=== PATIENT | male | born 2000 | race Caucasian/White ===

== ENCOUNTER 2024-01-29 17:46 | Emergency (ER) | payer SELFPAY ==
[~2024-01-29] VITALS: Ht 177.8 cm; Wt 172.0 kg
[~2024-01-29 17:46] MED LIST: AMOXICILLIN500 MG OR; AMOXICILLIN500 MG PO; CEPHALEXIN500 MG PO; CORTISPORIN OTI10 ML AU; METRONIDAZOL500 MG PO; MIRALAX3350 NF PO; NAPROSYN375 MG PO; PERCOCET 5/325M1 TAB OR; PRILOSEC20 MG PO; TOBRAMYCIN0.3 % OP; TYLENOL # 31 TAB OR; ULTRAM50 M1 PO
[2024-01-29 17:55] VITALS: BP 157/100
[2024-01-29 18:01] VITALS: BP 150/94
[2024-01-29] MEDS ORDERED: methylPREDNISolone SODIUM SUCC 125 MG/2 ML SDV IM ONE (18:10)
[2024-01-29] MEDS ORDERED: AMOXICILLIN & POT CLAVULANATE 875 MG/TAB PO ONE (18:10)
[2024-01-29] MEDS ORDERED: KETOROLAC TROMETHAMINE 30 MG/ML SDV IM ONE (18:10)
[2024-01-29] MEDS ORDERED: AMOX-POT CLA PO (18:22)
[2024-01-29 18:30] VITALS: BP 144/97
[2024-01-29 18:40] VITALS: BP 144/97
== END 2024-01-29 18:44 | disposition home or self-care (01) | DRG 159 ==
LOC: ED 17:46
DX: K04.7 Periapical abscess without sinus (principal)